=== PATIENT | female | born 1990 | race Caucasian/White ===

== ENCOUNTER 2021-11-20 21:19 | Emergency (ER) | payer OTHER ==
[2021-11-20 21:29] VITALS: BP 103/68; PULSE 85; RESP 18; TEMP 97; BMI 27.9
[2021-11-20] MEDS ORDERED: LIDOCAINE 5% TOPICAL PATCH TP ONE (23:40)
[2021-11-20] MEDS ORDERED: LIDOCAINE 5% TOPICAL PATCH ONE (23:42)
[2021-11-21] MEDS ORDERED: LIDOCAINE PATCH REMOVAL MC ONE (12:00)
== END 2021-11-20 23:47 | disposition home or self-care (01) ==
LOC: JER 21:19
DX: O9A.212 Injury, poisoning and certain other consequences of external causes complicating pregnancy, second trimester (principal); R10.84 Generalized abdominal pain; V49.40XA Driver injured in collision with unspecified motor vehicles in traffic accident, initial encounter; Z3A.16 16 weeks gestation of pregnancy
CPT/HCPCS: 76604; 76705-TC; 76815; 93308; 99284-25

== ENCOUNTER 2022-05-23 18:50 | Inpatient (IN) | payer BC, OTHER ==
[2022-05-23] MEDS: ELECTROLYTE-148 SOLN 1,000 ML IV SCH (20:00)
[2022-05-23] MEDS ORDERED: DINOPROSTONE 10 MG VAGINAL SUPPOSITORY VG ONE (20:30)
[2022-05-23 20:42] VITALS: BMI 33.3
[2022-05-23 20:46] LABS: BASO % 0.2 % (0-2.0); EOS % 1.2 % (0-4.5); HEMATOCRIT 35.5 % (32.4-45.2); HEMOGLOBIN 12.2 GM/dL (10.7-15.3); LYMPH % 38.9 % (8-40); MCHC 34.5 g/dl (32.0-36.0); MEAN PLT VOLUME 9.6 fl (7.5-11.1); MONO % 6.7 % (3.8-10.2); PLATELET COUNT 224 10^3/uL (134-434); RBC 4.08 M/mm3 (3.60-5.2); RDW 16.8 % (11.6-15.6); WHITE BLOOD COUNT 7.8 K/mm3 (4.0-10.0)
[2022-05-23 20:47] LABS: INR 0.91 (0.83-1.09); PROTHROMBIN TIME (PATIENT) 10.6 SEC (9.7-13.0)
[2022-05-23 20:50] LABS: ACTIVATED PTT 34.7 SECONDS (25.2-36.5)
[2022-05-23 21:07] LABS: BLOOD UREA NITROGEN 13.6 mg/dL (7-18)
[2022-05-23 21:11] LABS: CREATININE 0.6 mg/dL (0.55-1.3)
[2022-05-23] MEDS ORDERED: AZITHROMYCIN IVPB 500 MG in DEXTROSE 5%-WATER - 250 ML IVPB ONE (21:45)
[2022-05-24] LABS: HIV INTERPRETATION NEGATIVE (NEGATIVE)
[2022-05-24] MEDS ORDERED: OXYTOCIN 30 UNITS in 0.9% NS 30 UNIT/500 ML INFUS.BAG IVPB ONE ×2 (10:18→14:44)
[2022-05-24] MEDS ORDERED: OXYTOCIN 30 UNITS in 0.9% NS 30 UNIT/500 ML INFUS.BAG IVPB SCH (10:30)
[2022-05-24] MEDS: ELECTROLYTE-148 SOLN 1,000 ML IV SCH ×2 (10:30→18:00)
[2022-05-24] MEDS ORDERED: FENTANYL/BUPIVACAINE/NS/PF - PCEA - 50 ML DISP.SYRIN EP ONE ×2 (16:21→20:37)
[2022-05-24] MEDS: FENTANYL/BUPIVACAINE/NS/PF - PCEA - 50 ML DISP.SYRIN EP SCH ×2 (16:50→20:50)
[2022-05-24] MEDS ORDERED: FENTANYL CITRATE/PF 50 MCG/ML VIAL ONE ×2 (17:35→21:59)
[2022-05-24] MEDS ORDERED: NALOXONE HCL 0.4 MG/ML VIAL IVPUSH PRN (18:00)
[2022-05-24] MEDS ORDERED: LIDOCAINE HCL 1% PRESERVATIVE FREE - 30ML VIAL ONE (23:58)
[2022-05-24] MEDS ORDERED: OXYTOCIN 20 UNITS in 0.9% NS 20 UNIT/1,000 ML INFUS.BAG IV ONE (23:58)
[2022-05-25] MEDS ORDERED: FENTANYL/BUPIVACAINE/NS/PF - PCEA - 50 ML DISP.SYRIN EP ONE (00:12)
[2022-05-25] MEDS: FENTANYL/BUPIVACAINE/NS/PF - PCEA - 50 ML DISP.SYRIN EP SCH ×2 (00:20→18:11)
[2022-05-25] MEDS ORDERED: BENZOCAINE 28 GM HEMORRHOIDAL OINTMENT TP PRN (02:37)
[2022-05-25] MEDS ORDERED: WITCH HAZEL 50% (TUCKS) 40 PAD/JAR PAD TP PRN (02:37)
[2022-05-25] MEDS ORDERED: METHYLERGONOVINE MALEATE 0.2 MG/1 ML AMP IM PRN (02:37)
[2022-05-25] MEDS ORDERED: BENZOCAINE 20% 57 GM BOTTLE TP PRN (02:37)
[2022-05-25] MEDS ORDERED: oxyCODONE HCL 5 MG TABLET PO PRN (02:37)
[2022-05-25] MEDS ORDERED: BISACODYL 10 MG SUPP.RECT RC PRN (02:37)
[2022-05-25] MEDS ORDERED: IBUPROFEN 600 MG TABLET (FP) PO PRN (02:37)
[2022-05-25] MEDS ORDERED: OXYTOCIN 20 UNITS in 0.9% NS 20 UNIT/1,000 ML INFUS.BAG IV SCH (02:45)
[2022-05-25 03:05] LABS: CORD BASE EXCESS -5.1 mmol/L (0-2); CORD HCO3 22.4 mmHg (20-29); CORD pH 7.261 (7.14-7.44)
[2022-05-25 03:06] LABS: CORD BASE EXCESS -5.5 mmol/L (0-2); CORD HCO3 19.5 mmHg (20-29); CORD PCO2 36.8 mmHg (30-78); CORD pH 7.342 (7.14-7.44)
[2022-05-25] MEDS: PRENATAL VITAMINS W/ FOLIC ACID TABLET (FP) PO SCH (09:40)
[2022-05-25] MEDS: ACETAMINOPHEN 325 MG TABLET (FP) PO PRN (17:47)
[2022-05-26 09:33] LABS: BASO % 0.2 % (0-2.0); EOS % 1.2 % (0-4.5); HEMATOCRIT 29.6 % (32.4-45.2); LYMPH % 24.8 % (8-40); MCH 29.7 pg (25.7-33.7); MCHC 33.7 g/dl (32.0-36.0); MEAN CELL VOLUME 87.9 fl (80-96); MEAN PLT VOLUME 9.4 fl (7.5-11.1); MONO % 5.2 % (3.8-10.2); NEUT % 68.6 % (42.8-82.8); PLATELET COUNT 241 10^3/uL (134-434); RBC 3.36 M/mm3 (3.60-5.2); RDW 17.2 % (11.6-15.6); WHITE BLOOD COUNT 12.5 K/mm3 (4.0-10.0)
[2022-05-26] MEDS: PRENATAL VITAMINS W/ FOLIC ACID TABLET (FP) PO SCH (10:23)
[2022-05-26] MEDS ORDERED: SENNOSIDES/DOCUSATE COMBO (SENNA PLUS) TABLET (UD) PO PRN (22:00)
[2022-05-27] MEDS: ACETAMINOPHEN 325 MG TABLET (FP) PO PRN (08:20)
[2022-05-27] MEDS: PRENATAL VITAMINS W/ FOLIC ACID TABLET (FP) PO SCH (09:04)
[2022-05-27 09:47] VITALS: BP 114/73; PULSE 78; RESP 16; TEMP 97.8
== END 2022-05-27 19:50 | disposition home or self-care (01) | DRG 807 ==
LOC: JLDR 18:50 → J3W 05-25 05:00
PROVIDERS: ADMIT Obstetrics & Gynecology; ATTEND Obstetrics & Gynecology
PROC: 3E0P7VZ Introduction of Hormone into Female Reproductive, Via Natural or Artificial Opening (ICD-10-PCS; 2022-05-23)
PROC: 3E033VJ Introduction of Other Hormone into Peripheral Vein, Percutaneous Approach (ICD-10-PCS; 2022-05-24)
PROC: 10907ZC Drainage of Amniotic Fluid, Therapeutic from Products of Conception, Via Natural or Artificial Opening (ICD-10-PCS; 2022-05-24)
PROC: 10E0XZZ Delivery of Products of Conception, External Approach (ICD-10-PCS; principal; 2022-05-25)
PROC: 0W8NXZZ Division of Female Perineum, External Approach (ICD-10-PCS; 2022-05-25)
PROC: 0HQ9XZZ Repair Perineum Skin, External Approach (ICD-10-PCS; 2022-05-25)
DX: O48.0 Post-term pregnancy (principal); Z37.0 Single live birth; O70.0 First degree perineal laceration during delivery; O99.214 Obesity complicating childbirth; E66.9 Obesity, unspecified; Z3A.41 41 weeks gestation of pregnancy
CPT/HCPCS: 36415; 36600; 59409; 80048; 82803; 85025; 85610; 85730; 86780; 86850; 86870; 86900; 86901; 86902; 87389; C9803-CS; U0003; U0005

== ENCOUNTER 2023-12-19 00:50 | Inpatient (IN) | payer OTHER ==
[2023-12-19] MEDS: ELECTROLYTE-148 SOLN 1,000 ML IV ONE (01:00)
[2023-12-19 01:22] LABS: BASO % 0.9 % (0-2.0); EOS % 0.9 % (0-4.5); HEMATOCRIT 33.2 % (32.4-45.2); HEMOGLOBIN 10.9 GM/dL (10.7-15.3); LYMPH % 40.3 % (8-40); MCHC 32.9 g/dl (32.0-36.0); MEAN CELL VOLUME 82.2 fl (80-96); MEAN PLT VOLUME 9.5 fl (7.5-11.1); MONO % 6.3 % (3.8-10.2); NEUT % 51.6 % (42.8-82.8); PLATELET COUNT 290 10^3/uL (134-434); RBC 4.04 M/mm3 (3.60-5.2); WHITE BLOOD COUNT 9.1 K/mm3 (4.0-10.0)
[2023-12-19 01:34] VITALS: BMI 34.9
[2023-12-19] MEDS ORDERED: FENTANYL/BUPIVACAINE/NS/PF - PCEA - 50 ML DISP.SYRIN EP ONE (01:43)
[2023-12-19 01:46] LABS: POTASSIUM 4.1 mmol/L (3.5-5.1)
[2023-12-19 01:49] LABS: BLOOD UREA NITROGEN 11.4 mg/dL (7-18); CALCIUM 8.7 mg/dL (8.5-10.1)
[2023-12-19 01:50] LABS: CREATININE 0.6 mg/dL (0.55-1.3)
[2023-12-19] MEDS: FENTANYL/BUPIVACAINE/NS/PF - PCEA - 50 ML DISP.SYRIN EP SCH (02:05)
[2023-12-19 02:09] LABS: INR 0.9 (0.83-1.09); PROTHROMBIN TIME (PATIENT) 10.4 SEC (9.7-13.0)
[2023-12-19] MEDS ORDERED: NALOXONE HCL 0.4 MG/ML VIAL IVPUSH PRN (02:28)
[2023-12-19] MEDS ORDERED: ELECTROLYTE-148 SOLN 1,000 ML IV SCH (02:30)
[2023-12-19] MEDS ORDERED: OXYTOCIN 20 UNITS in 0.9% NS 20 UNIT/1,000 ML INFUS.BAG IV ONE (02:39)
[2023-12-19] MEDS: OXYTOCIN 20 UNITS in 0.9% NS 20 UNIT/1,000 ML INFUS.BAG IV SCH (03:25)
[2023-12-19] MEDS ORDERED: ACETAMINOPHEN 325 MG TABLET (FP) PO PRN (03:31)
[2023-12-19] MEDS ORDERED: BISACODYL 10 MG SUPP.RECT RC PRN (03:31)
[2023-12-19] MEDS ORDERED: METHYLERGONOVINE MALEATE 0.2 MG/1 ML AMP IM PRN (03:31)
[2023-12-19] MEDS ORDERED: WITCH HAZEL 50% (TUCKS) 40 PAD/JAR PAD TP PRN (03:31)
[2023-12-19] MEDS ORDERED: oxyCODONE HCL 5 MG TABLET PO PRN (03:31)
[2023-12-19] MEDS ORDERED: BENZOCAINE 20% 57 GM BOTTLE TP PRN (03:31)
[2023-12-19] MEDS ORDERED: BENZOCAINE 28 GM HEMORRHOIDAL OINTMENT TP PRN (03:31)
[2023-12-19 04:22] LABS: CORD BASE EXCESS -2.1 mmol/L (0-2); CORD HCO3 27.3 mmHg (20-29); CORD PCO2 68.3 mmHg (30-78); CORD pH 7.219 (7.14-7.44)
[2023-12-19 04:23] LABS: CORD BASE EXCESS -3.4 mmol/L (0-2); CORD HCO3 21.6 mmHg (20-29); CORD PCO2 38.9 mmHg (30-78); CORD pH 7.362 (7.14-7.44)
[2023-12-19] MEDS: IBUPROFEN 600 MG TABLET (FP) PO PRN (06:48)
[2023-12-19] MEDS: PRENATAL VITAMINS W/ FOLIC ACID TABLET (FP) PO SCH (09:46)
[2023-12-20 08:18] LABS: BASO % 0.2 % (0-2.0); EOS % 1.8 % (0-4.5); HEMATOCRIT 25.3 % (32.4-45.2); HEMOGLOBIN 8.2 GM/dL (10.7-15.3); MCH 26.9 pg (25.7-33.7); MCHC 32.4 g/dl (32.0-36.0); MEAN CELL VOLUME 83.1 fl (80-96); MONO % 5.1 % (3.8-10.2); NEUT % 58.9 % (42.8-82.8); PLATELET COUNT 242 10^3/uL (134-434); RBC 3.04 M/mm3 (3.60-5.2); RDW 17.8 % (11.6-15.6); WHITE BLOOD COUNT 8.8 K/mm3 (4.0-10.0)
[2023-12-20] MEDS: SENNOSIDES/DOCUSATE COMBO (SENNA PLUS) TABLET (UD) PO PRN (22:57)
[2023-12-21 10:33] VITALS: BP 101/65; PULSE 80; RESP 16; TEMP 98.7
== END 2023-12-21 14:45 | disposition home or self-care (01) | DRG 560 ==
LOC: JLDR 00:50 → J3W 05:21
PROVIDERS: ADMIT Obstetrics & Gynecology; ATTEND Obstetrics & Gynecology
PROC: 10E0XZZ Delivery of Products of Conception, External Approach (ICD-10-PCS; principal; 2023-12-19)
DX: O80 Encounter for full-term uncomplicated delivery (principal); Z3A.39 39 weeks gestation of pregnancy; Z37.0 Single live birth
CPT/HCPCS: 36415; 36600; 59409; 80048; 82803; 85025; 85610; 85730; 86780; 86850; 86870; 86880; 86900; 86901; 86902